=== PATIENT | female | born 1950 | race Caucasian/White ===

== ENCOUNTER 2017-09-06 09:52 | Outpatient (CLI) ==
--- NOTE | 2017-09-06 12:12 | DEXA ---
EXAM: Bone densitometry. History: Risk for osteoporosis. Findings: Evaluation of the lumbar spine reveals a total bone mineral density of 0.890 grams per centimeter squ ared with T-score of negative 2.4. Evaluation of the left hip reveals a total bone mineral density of 0.728 grams per centimeter squared with T-score of negative 2.2. Evaluation of the right hip reveals a total bone mineral density of 0.750 grams per centimeter square d with T-score of negative 2.0. Impression: Osteopenia of the lumbar spine and bilateral hips.
== END 2017-09-06 09:53 | disposition home or self-care (01) ==
LOC: RAD 09:52
PROVIDERS: ATTEND Physician Assistant
DX: Z91.89 Other specified personal risk factors, not elsewhere classified (principal)

== ENCOUNTER 2017-11-02 13:55 | Outpatient (CLI) ==
[2017-11-02 14:18] LABS: BASOPHILS # (AUTO) 0.1 K/uL (0-0.2); BASOPHILS % (AUTO) 0.9 % (0.0-3.0); EOSINOPHILS # (AUTO) 0.2 K/ul (0.0-0.7); EOSINOPHILS % (AUTO) 3.4 % (0.0-7.0); HEMATOCRIT 35.8 % (37.0-47.0); HEMOGLOBIN 12.5 g/dl (12.0-16.0); IMMATURE GRANULOCYTE % (AUTO) 0.1 % (0.0-5.0); LYMPHOCYTES # (AUTO) 1.1 K/uL (0.60-3.4); LYMPHOCYTES % (AUTO) 16.5 (10.0-50.0); MEAN CORPUSCULAR HEMOGLOBIN 29.6 pg (27.0-31.0); MEAN CORPUSCULAR HGB CONC 34.9 (31.8-35.4); MEAN CORPUSCULAR VOLUME 84.6 fl (81.0-99.0); MONOCYTES # (AUTO) 0.5 K/uL (0.4-2.0); MONOCYTES % (AUTO) 6.6 (0-10); NEUTROPHILS % (AUTO) 72.5; PLATELET COUNT 250 10^3/uL (140-440); RED BLOOD COUNT 4.23 10^6/ul (4.20-5.40); WHITE BLOOD COUNT 6.85 K/ul (4.6-10.2)
--- NOTE | 2017-11-02 14:47 | DI ---
EXAM: CHEST FRONTAL AND LATERAL VIEWS HISTORY: Chest congestion. COMPARISON: 12/13/2016 FINDINGS: Heart size and mediastinal contour remain within normal limits. Lungs are mildly hyperin flated. No acute infiltrates are seen. No vascular congestion. There is no consolidation, visible p leural fluid or pneumothorax. Bones reveal no acute fracture. IMPRESSION: No acute cardiopulmonary process.
== END 2017-11-02 13:56 | disposition home or self-care (01) ==
LOC: RAD 13:55
PROVIDERS: ATTEND Nurse Practitioner
DX: K62.5 Hemorrhage of anus and rectum (principal); R09.89 Other specified symptoms and signs involving the circulatory and respiratory systems
CPT/HCPCS: 36415; 85025